=== PATIENT | male | born 1990 | race Two or more races ===

== ENCOUNTER 2024-12-12 12:53 | Emergency (ER) | payer MEDICAID, SELFPAY ==
[2024-12-12 13:01] VITALS: BP 138/86; PULSE 64; RESP 18; TEMP 36.8; O2SAT 98; BMI 32.3
--- NOTE | 2024-12-12 13:27 | PD.EDRME ---
Rapid Medical Screening Exam RME Arrival date/time: 12/12/24 12:53 This is a 34-year-old male that comes in with complaints of left upper abdominal pain patient states that sometimes he gets nauseous with this pain. Patient states he has had it for a few weeks now. Patient denies any urinary symptoms. I have greeted and performed a focused initial assessment of this patient. Initial appropriate labs ordered at this time. A comprehensive ED assessment and evaluation of the patient and analysis of all test and completion of medical decision making process will be conducted by additional ED provider. Chief Complaint: Abdominal Pain Time Seen by Provider: 12/12/24 12:57 Vital signs: Vital Signs Temperature 98.2 F 12/12/24 13:01 Pulse Rate 64 12/12/24 13:01 Respiratory Rate 18 12/12/24 13:01 Blood Pressure 138/86 H 12/12/24 13:01 Pulse Oximetry (%) 98 12/12/24 13:01 Oxygen Delivery Method Room Air 12/12/24 13:01
[2024-12-12 14:09] LABS: Basophils # (Auto) 0.1 Thou/mm3 (0.0-0.2); Basophils % (Auto) 1 % (0-2.5); Eosinophils # (Auto) 0.2 Thou/mm3 (0.0-0.5); Eosinophils % (Auto) 2 % (0-10); Hematocrit 43.4 % (41.0-53.0); Hemoglobin 15.4 g/dL (13.5-16.0); Immature Granulocytes % (Auto) 0 % (0-0); Immature Granulocytes Auto 0.02 Thou/mm3 (0.00-0.00); Lymphocytes # (Auto) 1.9 Thou/mm3 (1.0-4.8); Lymphocytes % (Auto) 24 % (10-50); Mean Corpuscular HGB Conc 35.5 g/dl (31.0-37.0); Mean Corpuscular Hemoglobin 32.5 pg (25.0-35.0); Mean Corpuscular Volume 92 fL (80-100); Monocytes # (Auto) 0.9 Thou/mm3 (0.0-0.8); Monocytes % (Auto) 11 % (0-12); Neutrophils # (Auto) 4.8 Thou/mm3 (1.8-7.7); Neutrophils % (Auto) 62 % (37-80); Nucleated Red Blood Cell % 0 /100 WBC (0); Platelet Count 193 Thou/mm3 (140-440); RDW Standard Deviation 41.2 fL (35.1-43.9); Red Blood Count 4.74 Miln/mm3 (4.50-5.90); White Blood Count 7.8 Thou/mm3 (3.8-10.6)
[2024-12-12 14:36] LABS: Collection Type, Urine Voided; Squamous Epithelial Cell,Urine 0 /hpf (0-5)
[2024-12-12 14:41] LABS: Bilirubin,Urine Negative (Negative); Blood,Urine Negative (Negative); Clarity,Urine Clear (Clear/Hazy); Color,Urine Lt-Yellow (Lt Yel-Yel); Culture Indicated,Urine Not Indicated; Glucose, Urine Negative (Negative); Ketones,Urine Negative (Negative); Leukocyte Esterase,Urine Negative (Negative); Nitrite,Urine Negative (Negative); PH,Urine 6.5 (5.0-7.0); Protein,Urine Negative (Neg - Trace); RBC,Urine < 1 /hpf (0-3); Specific Gravity,Urine 1.012 (1.001-1.035); Urobilinogen,Urine Negative mg/dL (0.0-1.0); WBC,Urine 1 /hpf (0-5)
[2024-12-12 14:41] LABS: Alanine Aminotransferase 312 U/L (10-49); Albumin, Serum 4.6 gm/dL (3.5-5.0); Albumin/Globulin Ratio 1.4 (1.2-2.2); Alkaline Phosphatase 105 U/L (46-116); Anion Gap 6 (7-16); Aspartate Amino Transferase 208 U/L (0-34); BUN/Creatinine Ratio 14 Ratio (12-20); Blood Urea Nitrogen 11 mg/dL (9-23); Calcium 9.1 mg/dL (8.3-10.6); Calcium (Corrected) 9.1 mg/dL (8.5-10.1); Carbon Dioxide 27.7 mMol/L (20.0-31.0); Chloride 105 mMol/L (98-107); Creatinine (Component) 0.8 mg/dL (0.6-1.3); Estimated Creatinine Clearance 147.8 mL/min (>60); Globulin 3.3 gm/dL (2.3-3.5); Glucose 85 mg/dL (74-106); Lipase 27 U/L (12-53); Osmolality,Calculated 275 (275-295); Potassium 3.8 mMol/L (3.4-5.1); Sodium 139 mMol/L (136-145); Total Protein 7.9 gm/dL (5.7-8.2); eGFR > 60 See Note
--- NOTE | 2024-12-12 15:18 | EDNOTE_ITS ---
<Statement entered by Summer Alaniz MD - 12/12/24 17:44> As co-signing physician, I was present and available for consult prn. I concur with the plan and care as documented by the midlevel provider. ED Abdominal Pain RME/HPI General Chief Complaint: Abdominal Pain Stated complaint: LEFT ABD PAIN Time seen by provider: 12/12/24 12:57 Arrival date/time: 12/12/24 12:53 RME / HPI RME / HPI narrative: 34-year-old male patient with no significant medical history, came in for evaluation regarding left upper quadrant pain. Onset of symptoms for several weeks, it comes and goes, worse during the night, described as dull ache, with nausea and increased elevation. Patient denies any vomiting denies any fever denies any cough denies any shortness of breath denies any other complaints no medications taken prior to arrival. Related Data Home Medications ?Medication ?Instructions ?Recorded ?Confirmed Acetaminophen With Codeine #3 * 1 tab PO [id number] PRN P AIN #0 tabs 11/28/13 (TYLENOL WITH CODEINE #3 *) Previous Rx's ?Medication ?Instructions ?Recorded naproxen 500 mg tablet 500 mg PO BID PRN pain #30 t abs 06/17/21 dicyclomine 20 mg tablet 20 mg PO BID #20 tabs hydrocortisone acetate 25 mg 25 mg VA QDAY #12 ea 11/17 12/10 rectal suppository (Anusol-HC) pantoprazole 40 mg tablet,delayed 40 mg PO QDAY #20 ta bs 12/12/24 release (Protonix) Allergies Allergy/AdvReac Type Severity Reaction Status Date / Time No Known Allergies Allergy Verified 12/12/24 12:56 Review of Systems Review of Systems Narrative Review of Systems: Review of system reviewed and within normal limits except mentioned in HPI ED Exam Narrative Physical exam: VITAL SIGNS: Reviewed. GENERAL APPEARANCE: Alert and interactive, follows commands, no acute distress, HEAD AND FACE: Non-traumatic. ENT: PERRL, pink conjunctivitis, eyelid no trauma, Mucous membrane moist. NECK: Supple, nontender, no nuchal rigidity. CHEST: No tenderness, no crepitus, no paradoxical movement, no retractions. LUNGS: Clear, well ventilated, symmetric, no rales, no wheezing, no ronchi, no stridor, good breath sounds bilaterally. HEART: Regular rate, regular rhythm, no murmur, no gallops. ABDOMEN: Soft, positive bowel sounds, nondistended, no guarding, nontender, no rebound, no masses, RECTAL: Deferred. GENITAL: Deferred. NEUROLOGICAL: Gross motor function intact sensory function intact, Appropriate for age. MUSCULOSKELETAL: low back nontender, full range of motion. EXTREMITIES: Nontender, full range of motion. SKIN: Color pink, dry, no rash, no lacerations, no abrasions, no contusions. LYMPHATICS: Deferred. Course Quality Measures none Orders Category Date Time Status CBC Stat Lab 12/12/24 13:56 Completed Comprehensive Metabolic Panel Stat Lab 12/12/24 13:56 Completed Lipase Stat Lab 12/12/24 13:56 Completed Urinalysis, C/S if Indicated Stat Lab 12/12/24 14:11 Completed Vital Signs Vital signs: Vital Signs Temperature 98.2 F 12/12/24 13:01 Pulse Rate 64 12/12/24 13:01 Respiratory Rate 18 12/12/24 13:01 Blood Pressure 138/86 H 12/12/24 13:01 Pulse Oximetry (%) 98 12/12/24 13:01 Oxygen Delivery Method Room Air 12/12/24 13:01 Abdominal Pain MDM MDM Narrative MDM Narrative:: 34-year-old male patient with no significant medical history, came in for evaluation regarding left upper quadrant pain. Onset of symptoms for several weeks, it comes and goes, worse during the night, described as dull ache, with nausea and increased elevation. Patient denies any vomiting denies any fever denies any cough denies any shortness of breath denies any other complaints no medications taken prior to arrival. Patient's workup today all came back normal lipase is normal LFTs normal total bili is normal CBC is normal also Patient is probably having gastritis Patient appears nontoxic and hemodynamically stable. Patient discharged home and instructed to follow-up with primary care provider in 24 to 48 hours. Instructed to return to the emergency department immediately if worsening of symptoms Patient data External records reviewed:: None Clinical information provided by:: patient Social determinants that could affect healthcare access:: none Patient has the following chronic illnesses:: None How is presenting disease/condition affected by chronic disease/condition?: no chronic disease Evaluation data The following diagnostics were reviewed and interpreted by me:: lab results Lab and/or radiology exams considered but not ordered:: None Interpretation Summary: See results MDM Medications / Prescriptions Medications or Prescriptions considered but not ordered:: None Medication administrations:: None Consultations Consultation(s) initiated? (list below): No Diagnosis Differential diagnosis abdominal pain: abdominal pain and pancreatitis Most likely diagnosis given after review of the tests above:: Gastritis Admission Indicated Admission indicated?: not indicated Explain why admission is indicated or not indicated:: Stable Admission Request Was there a request for admission?: No Disposition Plan Disposition Plan: Discharge Discharge Attestation Discharge Attestation: The patient was given an opportunity to ask questions and understood the discharge instructions. Discharge instructions specifically effects, indications for sooner follow up or return to the emergency department, and the expected course of current diagnosis. Patient condition: Stable Discharge Plan Plan Patient Disposition: HOME (Self Care) Disposition Comment: stable Prescriptions/Referrals Prescriptions/Med Rec: New pantoprazole [Protonix] 40 mg tablet,delayed release (DR/EC) 40 mg PO QDAY Qty: 20 0RF No Action Acetaminophen With Codeine #3 * (TYLENOL WITH CODEINE #3 *) 1 TAB tablet 1 tab PO [id number] PRN (Reason: PAIN) Qty: 0 Patient Comments: FOR PAIN naproxen 500 mg tablet 500 mg PO BID PRN (Reason: pain) Qty: 30 0RF dicyclomine 20 mg tablet 20 mg PO BID Qty: 20 0RF hydrocortisone acetate [Anusol-HC] 25 mg suppository 25 mg VA QDAY Qty: 12 0RF Referrals: Reji Tate MD [Primary Care Provider] - In 1 week Problem List Clinical Impression: Abdominal pain, Gastritis Patient/Caregiver Discharge Instructions Discharge Activity: activity as tolerated Education Materials: ED Gastritis (Adult) Additional Instructions: Thank you for the opportunity for serving you today. You are stable for discharged . You are advised to: Follow-up with your PCP in 1 to 2 days Return to ED for worsening of symptoms Increase oral fluids Take medication as prescribed Print Language: [place] Citizen Stand Alone Forms: Radha Award Info., Patient Portal Info Letter PA/LORI Supervising Physician PARK/LORI Supervising Physician: MD Katty
== END 2024-12-12 16:10 | disposition home or self-care (01) ==
PROVIDERS: Nurse Practitioner Family; Emergency Provider Emergency Medicine; PCP Family Medicine
DX: K29.70 Gastritis, unspecified, without bleeding (principal)
CPT/HCPCS: 36415; 80053; 81001; 83690; 85025; 99283

== ENCOUNTER 2025-07-01 17:29 | Emergency (ER) | payer MEDICAID, SELFPAY ==
[2025-07-01 17:30] VITALS: BMI 33.9
[2025-07-01 17:38] VITALS: BP 147/85; PULSE 67; RESP 18; TEMP 36.9; O2SAT 97
--- NOTE | 2025-07-01 18:26 | EDNOTE_ITS ---
Neuro Symptoms Deficit-RME/HPI General Chief Complaint: Neuro Symptoms/Deficit Stated Complaint: GENEARLIZED BODY NUMBNESS/TINGLING Time Seen by Provider: 07/01/25 18:27 Arrival date/time: 07/01/25 17:29 RME / HPI RME / HPI Narrative: See [facility] for Dr. Arce's HPI Documentation. Related Data Home Medications ?Medication ?Instructions ?Recorded ?Confirmed Acetaminophen With Codeine #3 * 1 tab PO [id number] PRN P AIN #0 tabs 11/28/13 (TYLENOL WITH CODEINE #3 *) Previous Rx's ?Medication ?Instructions ?Recorded naproxen 500 mg tablet 500 mg PO BID PRN pain #30 t abs 06/17/21 dicyclomine 20 mg tablet 20 mg PO BID #20 tabs hydrocortisone acetate 25 mg 25 mg AL QDAY #12 ea 11/17 12/10 rectal suppository (Anusol-HC) pantoprazole 40 mg tablet,delayed 40 mg PO QDAY #20 ta bs 12/12/24 release (Protonix) famotidine 40 mg tablet 40 mg PO .bedtime #30 tabs 1 08/31/24 folic acid 1 mg tablet 1 mg PO QDAY #90 tabs lorazepam 1 mg tablet (Ativan) 1 mg PO Q8H PRN alcohol withdrawal 07/01/25 #20 tabs multivitamin 1 tab PO QDAY #90 tabs 07/01 omeprazole 40 mg capsule,delayed 40 mg PO QDAY #30 cap s 07/01/25 release ondansetron 4 mg disintegrating 4 mg PO TID PRN nausea and 07/01/25 tablet vomiting 30 days #10 tabs thiamine HCl (vitamin B1) 50 mg 50 mg PO QDAY #90 tabs 07/01/25 tablet Allergies Allergy/AdvReac Type Severity Reaction Status Date / Time No Known Allergies Allergy Verified 07/01/25 17:32 Review of Systems Review of Systems Systems Reviewed: All systems reviewed, normal except as documented Past Medical History Social History ALCOHOL: Current ALCOHOL FREQUENCY: 3 or More Drinks per Day ALCOHOL LAST INTAKE: Days (ago) (4) ED Exam Narrative Physical exam: See MDM for Dr. Arce's Physical Exam Documentation. Course Quality Measures none Orders Category Date Time Status EKG (ED ONLY) *Do not use* NOW Care 07/01/25 18:[address] chest abdomen pelvis wo Stat Exams 07/01/25 18:[address] head/brain wo con Stat Exams 07/01/25 18:27 Completed EKG (ED Only) Stat Exams 07/01/25 18:28 Draft XR chest 1V portable Stat Exams 07/01/25 18:28 Completed Alcohol, Blood Medical Stat Lab 07/01/25 18:40 Completed Amylase Stat Lab 07/01/25 18:40 Completed BNP [B-Type Natriuretic Peptide] Stat Lab 07/01/25 18:40 Completed Bilirubin,Direct Stat Lab 07/01/25 18:40 Completed CBC Stat Lab 07/01/25 18:40 Completed CK [Creatine Kinase] Stat Lab 07/01/25 18:40 Completed CMP [Comprehensive Metabolic Panel] Stat Lab 07/01/25 18:40 Completed CRP [C-Reactive Protein] Stat Lab 07/01/25 18:40 Completed Drug Screen,Urine Stat Lab 07/01/25 18:45 Completed ESR [Sed Rate (ESR)] Stat Lab 07/01/25 18:40 Completed Hemoglobin A1C [Glycohemoglobin w (eAG)] Stat Lab 07/01/25 18:40 Completed Lipase Stat Lab 07/01/25 18:40 Completed Magnesium Stat Lab 07/01/25 18:40 Completed Procalcitonin Stat Lab 07/01/25 18:40 Completed TSH [Thyroid Stimulating Hormone] Stat Lab 07/01/25 18:40 Completed Troponin I Stat Lab 07/01/25 18:40 Completed UA, C/S IF [Urinalysis, C/S if Indicated] Stat Lab 07/01/25 18:45 Completed VBG [Venous Blood Gas] Stat Lab 07/01/25 18:40 Completed ALPRazoLAM [Xanax] Med 07/01/25 18:27 Discontinued 0.75 mg PO X1 ONE Vital Signs Vital signs: Vital Signs Temperature 98.4 F 07/01/25 17:38 Pulse Rate 67 07/01/25 17:38 Respiratory Rate 18 07/01/25 17:38 Blood Pressure 147/85 H 07/01/25 17:38 Pulse Oximetry (%) 97 07/01/25 17:38 Oxygen Delivery Method Room Air 07/01/25 17:38 Neuro Symptoms / Deficit MDM Narrative MDM Narrative:: This section includes all my notes and documentations, including HPI, PE, and ED course. En Arce MD HPI: 34 y/o male with Hx of Chronic Alcoholism presents with many concerns. Has been drinking heavily and daily for years. Quit alcohol several days ago. His concerns include headaches, diffuse numbness, anxiety, tremors, fatigue, insomnia, and palpitations. No seizures. No hallucinations. No vomiting. No abdominal pain. No other complaints. ROS: All negative except as documented in HPI. Physical Exam: General: Alert and oriented. No acute distress. Eyes: Conjunctivae and lids clear. EOMI. PERRL. ENT: No nasal congestion. Neck: Supple. Heart: RRR. Lungs: No respiratory distress. Good air movement. No rhonchi, wheezing, rales. Abdomen: Soft and nontender. Normal bowel sounds. No distension. No rebound or guarding. Legs: No clubbing, cyanosis, edema. Skin: Warm and dry. Neuro: Alert and oriented X 3. Cranial Nerves II-XII grossly intact. No peripheral motor deficits. I reviewed all diagnostic test results: My interpretation of the EKG is: Sinus rhythm (59 bpm) with nonspecific ST-T changes. My interpretation of the chest x-ray is: NAD. My review of the Head/Brain CT report is: No acute findings. My review of the Abdomen/Pelvis CT report is NAD. Blood tests and urine tests remarkable for AST 154 and ALT 223. At this point, diagnoses include: Alcohol Withdrawal Treatment here included: Xanax 0.75 mg Significant improvement noted. Recommended more outpatient care. Based on my best medical judgment, made decision no further evaluation or treatment indicated at this time. Patient understands and agrees to the discharge instructions customized and printed, see below. Discharge Instructions from Dr. Arce printed for you: 1.? After extensive evaluation, there is no immediately life-threatening condition. Such as stroke or heart attack. To help prevent alcohol withdrawal which can be life-threatening, take Ativan [address]: One pill every 8 hours for 2 days. One pill every 12 hours for 2 days. 1/2 pill every 8 hours for 2 days. 1/2 pill every 12 hours for 2 days. 1/2 pill every 12 hours as needed. 2.? To prevent serious and potentially fatal future injuries and illnesses, quit alcohol at all cost. 3.? Eat regular nutritious meals. For good hydration, increase oral fluid and maintain clear urine.? If dark or yellow, increase oral fluid. Zofran for nausea/vomiting. 4.? Take multivitamin and folic acid and thiamine every day as prescribed. 5.? Take omeprazole every morning and famotidine every evening for alcohol induced stomach ulcer. 6.? See a private doctor on 04/20/2025 for recheck and further care. Ask for help to quit alcohol without alcohol withdrawal. You may need more prescription for Ativan. Ask to review all test results and official radiology reports, to make sure you receive all necessary follow-ups and monitoring. To make sure there is no serious intra-abdominal condition, ask for help with more investigation not available here in the ER.? Such as EGD or scoping the stomach, colonoscopy or scoping the colon, and referral to see sports physician. 7.? Seek immediate medical care with worsening or with any concerns. En Arce MD Patient data External records reviewed:: [facility] previous records (Reviewed prior ED records from 12/12/24. Patient was seen for Abdominal pain.) Clinical information provided by:: patient Social determinants that could affect healthcare access:: alcohol use Patient has the following chronic illnesses:: Alcoholism How is presenting disease/condition affected by chronic disease/condition?: exac erbated by Evaluation data The following diagnostics were reviewed and interpreted by me:: lab results, radiology exam(s) and EKG tracing(s) (My interpretation of the EKG is: Sinus rhythm (59 bpm) with nonspecific ST-T changes. En Arce MD) Lab and/or radiology exams considered but not ordered:: None Interpretation Summary: I reviewed all diagnostic test results: My interpretation of the EKG is: Sinus rhythm (59 bpm) with nonspecific ST-T changes. My interpretation of the chest x-ray is: NAD. My review of the Head/Brain CT report is: No acute findings. My review of the Abdomen/Pelvis CT report is NAD. Blood tests and urine tests remarkable for AST 154 and ALT 223. Medications / Prescriptions Medications or Prescriptions considered but not ordered:: None Medication administrations:: Medication Administration History Discontinued Medications Alprazolam (Alprazolam 0.25 Mg Tablet) 0.75 mg PO X1 ONE Stop: 07/01/25 18:28 Last Admin: 07/01/25 19:20 Dose: 0.75 mg Documented By: RUIZ Xanax 0.75 mg Consultations Consultation(s) initiated? (list below): No Diagnosis Neuro Differential Diagnosis: carpal tunnel syndrome, convulsions, delirium, per ipheral neuropathy, transient cerebral ischemia and other (alcohol withdrawal) Most likely diagnosis given after review of the tests above:: Alcohol Withdrawal Admission Indicated Admission indicated?: not indicated Explain why admission is indicated or not indicated:: With significant improvement and no condition needing emergent intervention, there was no indication for admission. Admission Request Was there a request for admission?: No Disposition Plan Disposition Plan: Discharge Discharge Attestation Discharge Attestation: The patient and all family members were given an opportunity to ask questions and understood the discharge instructions. Discharge instructions specifically effects, indications for sooner follow up or return to the emergency department, and the expected course of current diagnosis. Patient condition: Stable Discharge Plan Plan Patient Disposition: HOME (Self Care) Prescriptions/Referrals Prescriptions/Med Rec: New lorazepam [Ativan] 1 mg tablet 1 mg PO Q8H PRN (Reason: alcohol withdrawal) Qty: 20 0RF folic acid 1 mg tablet 1 mg PO QDAY Qty: 90 3RF ondansetron 4 mg tablet,disintegrating 4 mg PO TID PRN (Reason: nausea and vomiting) 30 Days Qty: 10 0RF thiamine HCl (vitamin B1) 50 mg tablet 50 mg PO QDAY Qty: 90 1RF multivitamin Tablet 1 tab PO QDAY Qty: 90 3RF famotidine 40 mg tablet 40 mg PO .bedtime Qty: 30 0RF omeprazole 40 mg capsule,delayed release(DR/EC) 40 mg PO QDAY Qty: 30 0RF No Action Acetaminophen With Codeine #3 * (TYLENOL WITH CODEINE #3 *) 1 TAB tablet 1 tab PO [id number] PRN (Reason: PAIN) Qty: 0 Patient Comments: FOR PAIN naproxen 500 mg tablet 500 mg PO BID PRN (Reason: pain) Qty: 30 0RF pantoprazole [Protonix] 40 mg tablet,delayed release (DR/EC) 40 mg PO QDAY Qty: 20 0RF dicyclomine 20 mg tablet 20 mg PO BID Qty: 20 0RF hydrocortisone acetate [Anusol-HC] 25 mg suppository 25 mg AL QDAY Qty: 12 0RF Referrals: Reji Tate MD [Primary Care Provider, [facility]] - In 1 week Problem List Clinical Impression: Alcohol withdrawal Patient/Caregiver Discharge Instructions Discharge Activity: activity as tolerated Education Materials: ED Alcohol Withdrawal, ED Alcohol Abuse Additional Instructions: Discharge Instructions from Dr. Arce printed for you: 1.? After extensive evaluation, there is no immediately life-threatening condition. Such as stroke or heart attack. To help prevent alcohol withdrawal which can be life-threatening, take Ativan [address]: One pill every 8 hours for 2 days. One pill every 12 hours for 2 days. 1/2 pill every 8 hours for 2 days. 1/2 pill every 12 hours for 2 days. 1/2 pill every 12 hours as needed. 2.? To prevent serious and potentially fatal future injuries and illnesses, quit alcohol at all cost. 3.? Eat regular nutritious meals. For good hydration, increase oral fluid and maintain clear urine.? If dark or yellow, increase oral fluid. Zofran for nausea/vomiting. 4.? Take multivitamin and folic acid and thiamine every day as prescribed. 5.? Take omeprazole every morning and famotidine every evening for alcohol induced stomach ulcer. 6.? See a private doctor on 07/02/25 for recheck and further care. Ask for help to quit alcohol without alcohol withdrawal. You may need more prescription for Ativan. Ask to review all test results and official radiology reports, to make sure you receive all necessary follow-ups and monitoring. 7.? Seek immediate medical care with worsening or with any concerns. Instrucciones de mary del Dr. Arce (impresas para usted): 1. Tras marin evaluaci?n exhaustiva, no se detecta ninguna afecci?n que ponga en peligro reece shaka de forma inmediata. Kb un derrame cerebral o un ataque card?aco. Para ayudar a prevenir la abstinencia de alcohol, que puede ser mortal, tome las pastillas de Ativan de 1 mg de la siguiente manera: [place] pastilla cada 8 horas darron 2 d?as. [place] pastilla cada 12 horas darron 2 d?as. Media pastilla cada 8 horas darron 2 d?as. Media pastilla cada 12 horas seg?n sea necesario. 2. Para prevenir lesiones y enfermedades graves y potencialmente mortales en el futuro, deje de consumir alcohol a toda cade. 3. Consuma comidas nutritivas con regularidad. Para marin buena hidrataci?n, aumente la ingesta de l?quidos y mantenga la orina ariadna. Si la orina es oscura o amarilla, aumente la ingesta de l?quidos. [place] Zofran para las n?useas y los v?mitos. 4. [place] un multivitam?mark, ?cido f?burton y tiamina todos los d?as seg?n lo prescrito. 5. [place] omeprazol todas las ma?anas y famotidina todas las noches para la ?lcera estomacal inducida por el alcohol. 6. Consulte a un m?dico particular el 02/07/2025 para marin revisi?n y tratamiento adicional. [place] ayuda para dejar de beber alcohol sin sufrir s?ndrome de abstinencia. Es posible que necesite m?s recetas de Ativan. Pida revisar todos los resultados de las pruebas y los informes radiol?gicos oficiales para asegurarse de recibir todos los seguimientos y controles necesarios. 7. Busque atenci?n m?dica inmediata si reece estado empeora o si tiene alguna inquietud. Print Language: [place] Stand Alone Forms: Radha Award Info., Patient Portal Info Letter
--- NOTE | 2025-07-01 18:27 | XR_ITS ---
Examination: CT brain head without contrast. 2-D sagittal coronal reconstructions Date and time of exam: July 01, 2025, 1856 hours, comparison November 11, 2020 INDICATIONS: Generalized body numbness and paresthesias beginning 4 days ago CTDI: vol (mGy): 52 DLP: (mGycm): 1063 Technique: Multiple CT axial sections of the brain have been obtained, 5 mm slice thickness. Contrast has not been administered. 2-D sagittal, coronal reconstructions have been obtained Low dose protocols were performed. One or more of the following dose reduction techniques were used; automated exposure control, adjustment of the mA and/or KV according to patient size, use of iterative reconstruction technique. Findings: No significant ventricular enlargement. Intra-axial or extra-axial hemorrhage density is not seen. No mass effect or midline shift Basal cisterns are not remarkable. Fourth ventricle is midline. Cranial vault intact. Impression: Negative for acute hemorrhage, mass effect or midline shift As clinically warranted, brain MRI MRA without contrast follow-up would best assess for demyelinating disease, acute ischemic change
--- NOTE | 2025-07-01 18:28 | XR_ITS ---
EXAMINATION: PA chest single view TECHNIQUE: Upright PA chest single view Date and time: July 01, 2025, 1912 hours INDICATIONS: Chest pain shortness of breath beginning today. FINDINGS: No significant cardiac enlargement. No mediastinal lymphadenopathy. No pneumonia or pulmonary edema. Osseous structures are intact. IMPRESSION: No active disease
--- NOTE | 2025-07-01 18:28 | EKG_ITS ---
[facility] Test Date: 2025-07-01 Pat Name: JELLY ATRISCOGARCIA Department: Room: - Gender: Male [employer]: : 1990 Requested By: En Solorio Order Number: [id number] Reading MD: En Solorio Measurements Intervals Olivia Rate: 59 P: 12 OK: 165 QRS: -42 QRSD: 111 T: 15 QT: 393 QTc: 390 Interpretive Statements SINUS BRADYCARDIA LEFT AXIS DEVIATION [QRS AXIS < -30] MODERATE INTRAVENTRICULAR CONDUCTION DELAY [110+ ms QRS DURATION] ST ELEVATION CONSISTENT WITH INJURY, PERICARDITIS, OR EARLY REPOLARIZATION [ST ELEVATION W/O NORMALLY INFLECTED T-WAVE] No previous ECG available for comparison /[id number]/S0/[id number].pdf
--- NOTE | 2025-07-01 18:31 | XR_ITS ---
Examination: CT chest, without intravenous contrast. CT abdomen, without intravenous contrast. CT pelvis, without intravenous contrast. 2-D sagittal and coronal reconstructions. 3-D reconstructions. Date and time of exam: July 01, 2025, 1859 hours INDICATIONS: Left-sided chest and abdominal pain beginning 1 month ago COMPARISON: July 04, 2022 CTDI vol (mgy) 9.30 DLP (MGycm) 747 Technique: Multiple CT images, 3.0 mm slice thickness, obtained chest, abdomen, pelvis, with the high-resolution 64 slice scanner.. Sagittal and coronal 2-D reconstructions are obtained. 3-D reconstructions Low dose protocols were performed. One or more of the following dose reduction techniques were used; automated exposure control, adjustment of the mA and/or KV according to patient size, use of iterative reconstruction technique. Findings: Thoracic aorta pulmonary arteries intact No paratracheal tracheobronchial or bronchopulmonary adenopathy No pneumonia, pulmonary edema, pleural disease No liver or splenic lesion No gallstones No pancreatic edema Minimal nodular thickening left adrenal gland No renal or ureteral calculi, no hydronephrosis 17 mm fat-containing umbilical hernia Absent appendix No bowel obstruction Colonic diverticulosis, no diverticulitis Transverse prostate dimension 5.3 cm Urinary bladder wall thickening, cystitis pattern, no bladder calculi Osseous structures are intact IMPRESSION: No mediastinal lymphadenopathy No pneumonia, pulmonary edema or pleural disease Negative for pancreatitis No renal or ureteral calculi, no hydronephrosis Absent appendix Colonic diverticulosis, no diverticulitis No bowel obstruction Contracted urinary bladder with wall thickening, consider cystitis
[2025-07-01 19:03] LABS: Collection Type, Urine Clean Catch; Squamous Epithelial Cell,Urine 0 /hpf (0-5)
[2025-07-01 19:06] LABS: Base Excess, Venous 2 (-3-3); O2 Saturation, Venous 82 % (96-97); PCO2, Venous 41 mmHg (36-56); PO2, Venous 46 mmHg (15-58); pH, Venous 7.42 (7.33-7.66)
[2025-07-01 19:10] LABS: Basophils # (Auto) 0.1 Thou/mm3 (0.0-0.2); Basophils % (Auto) 1 % (0-2.5); Eosinophils # (Auto) 0.1 Thou/mm3 (0.0-0.5); Eosinophils % (Auto) 2 % (0-10); Hematocrit 45.9 % (41.0-53.0); Hemoglobin 16.1 g/dL (13.5-16.0); Immature Granulocytes Auto 0.03 Thou/mm3 (0.00-0.00); Lymphocytes # (Auto) 2.5 Thou/mm3 (1.0-4.8); Lymphocytes % (Auto) 28 % (10-50); Mean Corpuscular HGB Conc 35.1 g/dl (31.0-37.0); Mean Corpuscular Hemoglobin 32.1 pg (25.0-35.0); Mean Corpuscular Volume 92 fL (80-100); Monocytes # (Auto) 1.1 Thou/mm3 (0.0-0.8); Monocytes % (Auto) 12 % (0-12); Neutrophils # (Auto) 5.1 Thou/mm3 (1.8-7.7); Neutrophils % (Auto) 58 % (37-80); Nucleated Red Blood Cell # 0.00 Thou/mm3 (0.00-0.00); Nucleated Red Blood Cell % 0 /100 WBC (0); Platelet Count 192 Thou/mm3 (140-440); RDW Standard Deviation 42.1 fL (35.1-43.9); Red Blood Count 5.01 Miln/mm3 (4.50-5.90); White Blood Count 8.9 Thou/mm3 (3.8-10.6)
[2025-07-01 19:13] LABS: Bilirubin,Urine Negative (Negative); Blood,Urine Negative (Negative); Clarity,Urine Clear (Clear/Hazy); Color,Urine Yellow (Lt Yel-Yel); Culture Indicated,Urine Not Indicated; Glucose, Urine Negative (Negative); Ketones,Urine Negative (Negative); Leukocyte Esterase,Urine Negative (Negative); Nitrite,Urine Negative (Negative); PH,Urine 6.0 (5.0-7.0); Protein,Urine 1+ (Neg - Trace); RBC,Urine 1 /hpf (0-3); Specific Gravity,Urine 1.037 (1.001-1.035); Urobilinogen,Urine 2.0 mg/dL (0.0-1.0); WBC,Urine < 1 /hpf (0-5)
[2025-07-01 19:20] LABS: Amphetamine/Methamp Scrn,U Negative (Negative); Barbiturate Screen,Urine Negative (Negative); Benzodiazepines Screen,Urine Negative (Negative); Benzoylecgonine Screen, Ur Negative (Negative); Fentanyl Screen,Urine Negative (Negative); Opiate Screen,Urine Negative (Negative); THC Screen,Urine Negative (Negative)
[2025-07-01 19:24] LABS: Sed Rate (ESR) 24 mm/hr (0-15)
[2025-07-01 19:25] LABS: Glucose Estimated Average 100 mg/dL (80-131); Hemoglobin A1C 5.1 % Hgb (4.8-6.0)
[2025-07-01 19:38] LABS: Alanine Aminotransferase 223 U/L (10-49); Albumin, Serum 5.3 gm/dL (3.5-5.0); Albumin/Globulin Ratio 1.8 (1.2-2.2); Alcohol, Blood Medical < 3.0 mg/dL (0-10.0); Alkaline Phosphatase 108 U/L (46-116); Amylase 87 U/L (30-118); Anion Gap 11 (7-16); Aspartate Amino Transferase 154 U/L (0-34); BUN/Creatinine Ratio 16 Ratio (12-20); Bilirubin,Direct 0.4 mg/dL (0.0-0.3); Bilirubin,Total 1.0 mg/dL (0.3-1.2); Blood Urea Nitrogen 14 mg/dL (9-23); C-Reactive Protein < 0.5 mg/dL (0.0-0.9); Calcium 9.6 mg/dL (8.3-10.6); Calcium (Corrected) 9.6 mg/dL (8.5-10.1); Carbon Dioxide 25.2 mMol/L (20.0-31.0); Chloride 103 mMol/L (98-107); Creatine Kinase 252 U/L (34-171); Creatinine (Component) 0.9 mg/dL (0.6-1.3); Estimated Creatinine Clearance 126.1 mL/min (>60); Globulin 2.9 gm/dL (2.3-3.5); Glucose 83 mg/dL (74-106); Lipase 24 U/L (12-53); Magnesium 2.5 mg/dL (1.6-2.6); Osmolality,Calculated 277 (275-295); Potassium 3.4 mMol/L (3.4-5.1); Procalcitonin 0.07 ng/ml (0.0-0.49); Sodium 139 mMol/L (136-145); Thyroid Stimulating Hormone 0.79 uIU/mL (0.55-4.78); Total Protein 8.2 gm/dL (5.7-8.2); Troponin I < 0.020 ng/mL (0.0-0.045); eGFR > 60 See Note
[2025-07-01 20:02] LABS: B-Type Natriuretic Peptide < 20 pg/mL (0-100)
== END 2025-07-01 20:19 | disposition home or self-care (01) ==
PROVIDERS: Emergency Provider Emergency Medicine; PCP Family Medicine
DX: F10.239 Alcohol dependence with withdrawal, unspecified (principal); Y90.9 Presence of alcohol in blood, level not specified
CPT/HCPCS: 36415; 70450; 71045; 71250; 74176; 80053; 80307; 80320; 81001; 82150; 82248; 82550; 82803; 83036; 83690; 83735; 83880; 84145; 84443; 84484; 85025; 85652; 86140; 93005; 99283; A9270; G0480